=== PATIENT | female | born 2000 | race Caucasian/White ===

== ENCOUNTER 2024-06-29 14:54 | Outpatient (RCR) | payer BC, SELFPAY ==
[2024-06-15 14:31] VITALS: BP 132/62
[2024-06-15] MEDS: INJECTAFER 265 MG IV (14:40)
[2024-06-15 15:47] VITALS: BP 135/64
[2024-06-29] MEDS: INJECTAFER 265 MG IV (15:08)
[2024-06-29 15:14] VITALS: BP 119/72
[2024-06-29 15:42] VITALS: BP 124/71
== END 2024-07-04 09:34 | disposition home or self-care (01) ==
LOC: OID 14:54
PROVIDERS: ATTENDING PHYSICIAN Nurse Practitioner Adult Health
DX: K90.0 Celiac disease (principal); E63.8 Other specified nutritional deficiencies; D63.8 Anemia in other chronic diseases classified elsewhere
CPT/HCPCS: 96365; J1439